=== PATIENT | male | born 1975 | race Two or more races ===

== ENCOUNTER 2020-02-10 06:17 | Emergency (ER) | payer SELFPAY ==
[~2020-02-10] VITALS: Ht 167.6 cm; Wt 146.1 kg
[2020-02-10] MEDS ORDERED: ACETAMINOPHEN 500 MG TABLET ONE (06:54)
[2020-02-10] MEDS ORDERED: IBUPROFEN 200 MG TABLET ONE (06:54)
--- NOTE | 2020-02-10 06:59 | NUR ---
PT HERE FOR C/O LEFT KNEE PAIN ALSO COUGH X3 WEEKS. PLACED VITALS SIGNS MONITORS ON PT.
[2020-02-10] MEDS ORDERED: ACETAMINOPHEN 500 MG TABLET PO ONE (07:00)
[2020-02-10] MEDS ORDERED: IBUPROFEN 800 MG TABLET PO ONE (07:00)
--- NOTE | 2020-02-10 07:03 | NUR ---
REPORT GIVEN TO SYEDA FARR.
--- NOTE | 2020-02-10 07:03 | NUR ---
THIS TECH TRIAGED/ROOMED PT
--- NOTE | 2020-02-10 07:07 | NUR ---
X-RAY TO BEDSIDE, VSS, WILL CONTINUE TO MONITOR.
[2020-02-10 07:36] VITALS: BP 134/69
--- NOTE | 2020-02-10 07:37 | NUR ---
INCREASED WORK OF BREATHING NOTED, PT STATES FEELING SLIGHTLY SOB, O2 SATS ABOVE 90% ON RA. PT DENIED WANTING TO SIT UP IN BED BECAUSE IT PUTS PRESSURE ON LEFT KNEE. WILL CONTINUE TO MONITOR.
--- NOTE | 2020-02-10 08:08 | NUR ---
TASK RN: RN DEMONSTRATED CRUTCH WALKING WITH PT. PT DEMONSTRATED BACK TO RN HOW TO USE CRUTCHES. LEFT ROXANA WRAPPED APPLIED TO KNEE. PT DC HOME IN A STABLE CONDITION. DC INSTRUCTIONS WERE DISCUSSED WITH PT. PT VERBALIZED UNDERSTANDING. PRESCRIPTION SCRIPT AND WORK NOTE HANDED TO PT. PT CRUTCH WALKED OUT OF ED WITH RN WITH A STEADY GAIT.
== END 2020-02-10 08:11 | disposition home or self-care (01) ==
LOC: ED 06:44
DX: R05 Cough (principal); M25.562 Pain in left knee
CPT/HCPCS: 71045; 99284

== ENCOUNTER 2020-04-16 16:48 | Emergency (ER) | payer OTHER ==
[~2020-04-16] VITALS: Ht 167.6 cm; Wt 147.0 kg
[2020-04-16 16:55] VITALS: BP 139/84
--- NOTE | 2020-04-16 17:10 | NUR ---
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
[2020-04-16] MEDS ORDERED: SODIUM CHLORIDE FLUSH 10ML SYR IVF ONE (18:00)
[2020-04-16] MEDS ORDERED: KETOROLAC 30 MG/1 ML IVPush ONE (18:00)
[2020-04-16] MEDS ORDERED: PROCHLORPERAZINE 5 MG/ML, 2ML IVPush ONE (18:00)
[2020-04-16] MEDS ORDERED: SUMATRIPTAN 6MG/0.5ML SQ ONE ×2 (18:00→18:27)
[2020-04-16] MEDS ORDERED: DIPHENHYDRAMINE 50 MG/ML, 1ML IVPush ONE (18:00)
[2020-04-16] MEDS ORDERED: PROCHLORPERAZINE 5 MG/ML, 2ML ONE (18:27)
[2020-04-16] MEDS ORDERED: DIPHENHYDRAMINE 50 MG/ML, 1ML ONE (18:27)
[2020-04-16] MEDS ORDERED: KETOROLAC 30 MG/1 ML ONE (18:27)
== END 2020-04-16 19:35 | disposition home or self-care (01) ==
LOC: ED 18:45
DX: G43.009 Migraine without aura, not intractable, without status migrainosus (principal)
CPT/HCPCS: 96372; 96374; 96375; 99284; J0780; J1200; J1885; J3030

== ENCOUNTER 2020-10-26 03:05 | Emergency (ER) | payer OTHER ==
[~2020-10-26] VITALS: Ht 167.6 cm; Wt 115.0 kg
--- NOTE | 2020-10-26 03:22 | NUR ---
CC OF VOMITING FOR SEVERAL HOURS AND ABD PAIN MAINLY WORSE IN THE MIDDLE. DENIES DIARRHEA AND CLOSE CONTACT WITH ANY SICK PEOPLE.
[2020-10-26] MEDS ORDERED: ONDANSETRON 2MG/ML, 2ML ONE (03:38)
[2020-10-26] MEDS ORDERED: MORPHINE SULFATE 4 MG/ML, 1ML ONE (03:39)
[2020-10-26] MEDS ORDERED: ONDANSETRON 2MG/ML, 2ML IVPush ONE (04:00)
[2020-10-26] MEDS ORDERED: MORPHINE SULFATE 4 MG/ML, 1ML IVPush PRN (04:00)
[2020-10-26] MEDS ORDERED: SODIUM CHLORIDE 0.9% 1,000ML IVBOLUS ONE (04:00)
[2020-10-26 04:14] LABS: BASOPHILS % (AUTO) 1 % (0-1); EOSINOPHILS % (AUTO) 2 % (1-7); LYMPHOCYTES % (AUTO) 19 % (22-44); MEAN CORPUSCULAR HEMOGLOBIN 33.3 pg (27.5-34.5); MEAN CORPUSCULAR HGB CONC 34.3 g/dL (33.2-36.2); MEAN PLATELET VOLUME 7.7 fL (7.4-10.4); MONOCYTES % (AUTO) 8 % (2-9); NEUTROPHILS % (AUTO) 71 % (42-75); PLATELET COUNT 236 x10^3/uL (130-400); RED BLOOD COUNT 4.23 x10^6/uL (4.38-5.82); RED CELL DISTRIBUTION WIDTH 13.8 % (9.4-14.8)
[2020-10-26 04:19] LABS: MD NO
[2020-10-26 04:24] LABS: ALANINE AMINOTRANSFERASE 55 U/L (12-78); ALBUMIN 2.4 g/dL (3.4-5.0); ANION GAP 5 mmol/L (5-15); CALCIUM 8.1 mg/dL (8.5-10.1); CHLORIDE 110 mmol/L (98-107); CREATININE 0.71 mg/dL (0.7-1.3)
[2020-10-26 04:26] LABS: ALKALINE PHOSPHATASE 107 U/L (45-117); BILIRUBIN,TOTAL 0.6 mg/dL (0.2-1.0); TOTAL PROTEIN 8.4 g/dL (6.4-8.2)
--- NOTE | 2020-10-26 04:29 | NUR ---
PT REPORTS RELIEF FROM PAIN AND NAUSEA
--- NOTE | 2020-10-26 04:32 | NUR ---
per ct waiting for labs to come back before taking patient over.
--- NOTE | 2020-10-26 04:41 | NUR ---
pt to ct
[2020-10-26] MEDS ORDERED: OMNIPAQUE 350 MG/ML, 100ML BOTTLE ONE (04:55)
--- NOTE | 2020-10-26 05:58 | NUR ---
pt requesting water
--- NOTE | 2020-10-26 06:12 | NUR ---
able to tolerate water. no nausea/vomiting
[2020-10-26 06:26] VITALS: BP 124/66
--- NOTE | 2020-10-26 06:27 | NUR ---
Patient/Caregiver given discharge instructions and they have confirmed that they understand the instructions. Patient ambulatory with steady gait.
== END 2020-10-26 07:00 | disposition home or self-care (01) ==
LOC: ED 06:33
DX: R10.84 Generalized abdominal pain (principal); R11.2 Nausea with vomiting, unspecified
CPT/HCPCS: 36415; 74177; 80053; 83690; 85025; 96361; 96374; 96375; 99285; J2270; J2405; J7030; Q9967

== ENCOUNTER → 2020-11-24 | Outpatient (CLI) | payer OTHER | END | disposition home or self-care (01) | LOC: STAR 10:25 | PROVIDERS: ATTEND Surgery | DX: Z20.822 Contact with and (suspected) exposure to COVID-19 (principal) | CPT/HCPCS: 87635 ==

== ENCOUNTER 2020-11-30 06:31 | Day surgery (SDC) | payer OTHER ==
[~2020-11-30] VITALS: Ht 167.6 cm; Wt 149.1 kg
[2020-11-30] MEDS ORDERED: BUPIVACAINE/PF 0.25% ONE (06:55)
[2020-11-30] MEDS ORDERED: EPINEPHRINE 1 MG/ML, 1ML ONE (06:55)
[2020-11-30] MEDS ORDERED: CHLORHEXIDINE 15 ML UDC ONE (07:10)
[2020-11-30 07:28] VITALS: BP 161/95
[2020-11-30] MEDS ORDERED: LACTATED RINGERS 1,000 ML IV SCH (07:30)
[2020-11-30] MEDS ORDERED: CHLORHEXIDINE 15 ML UDC MM ONE (07:30)
[2020-11-30] MEDS ORDERED: FENTANYL PF 250 MCG/5ML ONE (09:06)
[2020-11-30] MEDS ORDERED: MIDAZOLAM 1 MG/ML, 2ML ONE (09:06)
[2020-11-30] MEDS ORDERED: DEXAMETHASONE 4 MG/ML, 5ML ONE (09:07)
[2020-11-30] MEDS ORDERED: PROPOFOL 10 MG/ML, 20ML ONE (09:08)
[2020-11-30] MEDS ORDERED: CEFAZOLIN 1,000 MG ONE ×3 (09:26)
[2020-11-30] MEDS ORDERED: SUGAMMADEX 200 MG/2 ML IVPush ONE (09:59)
[2020-11-30] MEDS ORDERED: ONDANSETRON 2MG/ML, 2ML ONE ×2 (09:59)
[2020-11-30] MEDS ORDERED: HYDR-1067 PO (10:22)
[2020-11-30] MEDS ORDERED: OXYcodone 5 MG/5 ML ORAL.SOL UDC PO PRN (10:30)
[2020-11-30] MEDS ORDERED: DIPHENHYDRAMINE 50 MG/ML, 1ML IVPush PRN ×2 (10:30)
[2020-11-30] MEDS ORDERED: ALBUTEROL SULFATE 2.5 MG/3 ML NPPB PRN (10:30)
[2020-11-30] MEDS ORDERED: MIDAZOLAM 1 MG/ML, 2ML IV PRN (10:30)
[2020-11-30] MEDS ORDERED: hydrALAzine 20 MG/ML, 1ML IV PRN (10:30)
[2020-11-30] MEDS ORDERED: PROMETHAZINE 25 MG/ML, 1ML IVPush PRN (10:30)
[2020-11-30] MEDS ORDERED: DIAZEPAM 5 MG/ML, 2ML IVPush PRN (10:30)
[2020-11-30] MEDS ORDERED: HYDROmorphone 1 MG/ML, 1ML INJ IVPush PRN (10:30)
[2020-11-30] MEDS ORDERED: EPHEDRINE 50 MG/ML, 1ML IVPush PRN (10:30)
[2020-11-30] MEDS ORDERED: LABETALOL 5MG/ML, 20ML IV PRN (10:30)
[2020-11-30] MEDS ORDERED: ONDANSETRON 2MG/ML, 2ML IVPush PRN (10:30)
[2020-11-30] MEDS ORDERED: ACETAMINOPHEN 325 MG TABLET PO PRN (10:30)
[2020-11-30] MEDS ORDERED: FENTANYL PF 100 MCG/2ML IV PRN (10:30)
[2020-11-30] MEDS ORDERED: MEPERIDINE/PF 25MG/0.5ML IVPush PRN (10:30)
[2020-11-30] MEDS ORDERED: PROMETHAZINE 12.5 MG SUPP PR PRN (10:30)
== END 2020-11-30 13:35 | disposition home or self-care (01) ==
LOC: OUT 06:31
PROVIDERS: ATTEND Surgery
DX: K81.1 Chronic cholecystitis (principal); J45.909 Unspecified asthma, uncomplicated; E66.01 Morbid (severe) obesity due to excess calories; Z68.43 Body mass index [BMI] 50.0-59.9, adult; Z79.899 Other long term (current) drug therapy; Z91.018 Allergy to other foods
CPT/HCPCS: 47562; 88304; J0171; J0690; J1100; J2250; J2405; J2704; J3010; J7120

== ENCOUNTER 2021-03-12 02:39 | Emergency (ER) | payer OTHER ==
[~2021-03-12] VITALS: Ht 167.6 cm; Wt 146.9 kg
[~2021-03-12 02:39] MED LIST: HYDR-2214 PO
[2021-03-12 02:51] VITALS: BP 154/78
[2021-03-12] MEDS ORDERED: SILVER NITRATE STICK TP ONE (03:08)
--- NOTE | 2021-03-12 03:11 | NUR ---
ERP AT BEDSIDE
--- NOTE | 2021-03-12 04:14 | NUR ---
Patient given discharge instructions and they have confirmed that they understand the instructions. Patient ambulatory with steady gait.
== END 2021-03-12 04:15 | disposition home or self-care (01) ==
LOC: ED 03:09
DX: R04.0 Epistaxis (principal); J00 Acute nasopharyngitis [common cold]; J45.909 Unspecified asthma, uncomplicated; Z90.49 Acquired absence of other specified parts of digestive tract
CPT/HCPCS: 30901; 99284

== ENCOUNTER 2021-06-23 05:17 | Emergency (ER) | payer OTHER ==
[~2021-06-23] VITALS: Ht 167.6 cm; Wt 145.0 kg
[2021-06-23 05:34] VITALS: BP 120/70
[2021-06-23] MEDS ORDERED: KETOROLAC 60 MG/2 ML ONE (06:06)
[2021-06-23] MEDS ORDERED: HYDROmorphone 2 MG/ML, 1ML ONE (06:06)
--- NOTE | 2021-06-23 06:15 | NUR ---
INITIAL PT CONTACT. PT PRESENTS TO ED C/O GENERALIZED BACK PAIN. 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 STATES PAIN HAS BEEN GETTING WORSE. STATES PAIN SHOOTS DOWN LEGS TO ABOUT KNEE LEVEL. PT SITTING UPRIGHT ON [facility]. PT MEDICATED PER EMAR, AWAITING XRAY.
[2021-06-23] MEDS ORDERED: KETOROLAC 30 MG/1 ML IM ONE (06:30)
[2021-06-23] MEDS ORDERED: HYDROmorphone 1 MG/ML, 1ML INJ IM ONE (06:30)
--- NOTE | 2021-06-23 06:52 | NUR ---
REPORT TO TIFFANY FARR
== END 2021-06-23 07:41 | disposition home or self-care (01) ==
LOC: ED 06:10
DX: S39.012A Strain of muscle, fascia and tendon of lower back, initial encounter (principal); G43.909 Migraine, unspecified, not intractable, without status migrainosus; Z90.49 Acquired absence of other specified parts of digestive tract; X58.XXXA Exposure to other specified factors, initial encounter; Y93.89 Activity, other specified; Y92.89 Other specified places as the place of occurrence of the external cause; Y99.8 Other external cause status
CPT/HCPCS: 72110; 96372; 99284; J1170; J1885